=== PATIENT | male | born 1950 | race Caucasian/White ===

== ENCOUNTER 2016-06-25 15:50 | Inpatient (IN) | payer BC, MEDICARE ==
[~2016-06-25] VITALS: Ht 185.4 cm; Wt 84.4 kg
[2016-06-25 16:19] VITALS: BP 117/43
[2016-06-25 16:36] LABS: BASOPHILS % (AUTO) 1.1 % (0.0-2.0); EOSINOPHILS % (AUTO) 2.7 % (0.0-3.0); LYMPHOCYTES % (AUTO) 28.3 % (20.0-45.0); MEAN CORPUSCULAR HEMOGLOBIN 29.3 PG (27.0-31.0); MEAN CORPUSCULAR HGB CONC 33.5 G/DL (32.0-36.0); MEAN CORPUSCULAR VOLUME 88 FL (80-99); MEAN PLATELET VOLUME 6.9 FL (6.5-10.1); MONOCYTES % (AUTO) 8.2 % (1.0-10.0); NEUTROPHILS % (AUTO) 59.7 % (45.0-75.0); PLATELET COUNT 180 K/UL (150-450); RED BLOOD COUNT 4.46 M/UL (4.70-6.10); RED CELL DISTRIBUTION WIDTH 12.9 % (11.6-14.8); WHITE BLOOD COUNT 7.2 K/UL (4.8-10.8)
[2016-06-25 16:46] LABS: INR 1.1 (0.9-1.1)
[2016-06-25 16:49] LABS: TROPONIN I < 0.30 ng/mL (<=0.30)
[2016-06-25 16:51] LABS: ALBUMIN/GLOBULIN RATIO 1.4 (1.0-2.7); CALCIUM 9.4 mg/dL (8.6-10.2); CREATININE 1.9 mg/dL (0.7-1.2); GLOMERULAR FILTRATION RATE 35.5 mL/min (>60); MAGNESIUM 2.1 mg/dL (1.7-2.5); POTASSIUM 4.6 mEQ/L (3.4-4.9)
[2016-06-25 16:56] LABS: REFLEX LACTIC ACID YES OR NO YES
[2016-06-25 19:03] VITALS: BP 143/60
[2016-06-25] MEDS ORDERED: BENICAR20 MG ORAL (19:35)
[2016-06-25] MEDS ORDERED: METFORMIN HCL500 M1 ORAL (19:35)
[2016-06-25 20:11] VITALS: BP 144/66
[2016-06-25 20:32] LABS: APPEARANCE,URINE CLEAR; KETONES,URINE NEGATIVE (NEGATIVE); LEUKOCYTE ESTERASE ,URINE NEGATIVE (NEGATIVE); NITRITE,URINE NEGATIVE (NEGATIVE); PH,URINE 6 (4.5-8.0); PROTEIN,URINE NEGATIVE (NEGATIVE); UROBILINOGEN,URINE NORMAL MG/DL (0.0-1.0)
--- NOTE | 2016-06-25 21:13 | Emergency Room Report ---
History of Present Illness General Chief Complaint: Syncope Source: Patient, EMS Present Illness HPI Patient is a 66-year-old male who presented after having a syncopal episode at her pharmacy. The patient had been feeling lightheaded earlier in the day. The patient had a sudden loss of consciousness and hit his head. Patient denied any neck pain. He was brought in by ambulance. He had not been vomiting. He denied diarrhea or bloody stool. The patient had previously had episode where he became lightheaded and was diagnosed with pneumonia at [facility] but had never previously passed out. Patient had recent EKG for eye surgery and was noted to have a prior history of left bundle branch block. He had recently been taking eye drops for a post cataract surgery. His primary care physician is Dr. Osmar Washington. Allergies: Coded Allergies: No Known Allergies (Unverified , 06/25/16) Patient History Past Medical History: see triage record Reviewed Nursing Documentation: PMH: Agreed, PSxH: Agreed Nursing Documentation-PMH Past Medical History: No History, Except For Hx Cardiac Problems: Yes - L VENT BLOCK Hx Hypertension: Yes Hx Diabetes: Yes Review of Systems All Other Systems: negative except mentioned in HPI Physical Exam Vital Signs Date Time Temp Pulse Resp B/P Pulse Ox O2 Delivery O2 Flow Rate FiO2 06/25/16 15:39 97.5 82 12 111/86 98 Room Air Sp02 EP Interpretation: reviewed, normal General Appearance: normal inspection, well appearing, no apparent distress, alert, GCS 15, non-toxic Head: other - large frontal hematoma, ENT: normal ENT inspection, hearing grossly normal, normal voice, other - nasal abrasion Neck: normal inspection, full range of motion, supple, no bony tend Respiratory: normal inspection, lungs clear, normal breath sounds, no respiratory distress, no retraction, no wheezing Cardiovascular #1: regular rate, rhythm, no edema Gastrointestinal: normal inspection, normal bowel sounds, non tender, soft, no guarding, no hernia Genitourinary: no CVA tenderness Musculoskeletal: normal inspection, back normal, normal range of motion Neurologic: normal inspection, alert, oriented x3, 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 Potential causes for syncope included arrhythmia, dehydration, acute coronary syndrome, severe anemia, pulmonary embolus.Because of complexity of patient's case laboratory testing and imaging studies were ordered. Patient was noted to have EKG interpreted by me with first-degree AV block. with left bundle branch block Patient was noted to have a unremarkable chest x-ray. Laboratory testing showed evidence of the elevated creatinine and BUN. The patient was noted to have a previous creatinine of 1.9. The patient had been having some difficulty with urination. The patient's case was discussed with Dr. Osmar Sanchez who agreed to admit patient. The patient's primary physician Dr. Washington was contacted and requested Dr. Osmar Sanchez admit. Labs Test 06/25/16 16:00 06/25/16 17:30 06/25/16 19:55 White Blood Count 7.2 K/UL (4.8-10.8) Red Blood Count 4.46 M/UL (4.70-6.10) Hemoglobin 13.1 G/DL (14.2-18.0) Hematocrit 39.1 % (42.0-52.0) Mean Corpuscular Volume 88 FL (80-99) Mean Corpuscular Hemoglobin 29.3 PG (27.0-31.0) Mean Corpuscular Hemoglobin Concent 33.5 G/DL (32.0-36.0) Red Cell Distribution Width 12.9 % (11.6-14.8) Platelet Count 180 K/UL (150-450) Mean Platelet Volume 6.9 FL (6.5-10.1) Neutrophils (%) (Auto) 59.7 % (45.0-75.0) Lymphocytes (%) (Auto) 28.3 % (20.0-45.0) Monocytes (%) (Auto) 8.2 % (1.0-10.0) Eosinophils (%) (Auto) 2.7 % (0.0-3.0) Basophils (%) (Auto) 1.1 % (0.0-2.0) Prothrombin Time 11.0 SEC (9.30-11.50) Prothromb Time International Ratio 1.1 (0.9-1.1) Activated Partial Thromboplast Time 25 SEC (23-33) Sodium Level 140 mEQ/L (135-145) Potassium Level 4.6 mEQ/L (3.4-4.9) Chloride Level 99 mEQ/L (98-107) Carbon Dioxide Level 25 mEQ/L (20-30) Anion Gap 16 (5-15) Blood Urea Nitrogen 28 mg/dL (7-23) Creatinine 1.9 mg/dL (0.7-1.2) Estimat Glomerular Filtration Rate 35.5 mL/min (>60) Glucose Level 120 mg/dL (74-106) Calcium Level 9.4 mg/dL (8.6-10.2) Magnesium Level 2.1 mg/dL (1.7-2.5) Total Bilirubin 0.7 mg/dL (0.0-1.2) Aspartate Amino Transf (AST/SGOT) 18 U/L (5-40) Alanine Aminotransferase (ALT/SGPT) 16 U/L (3-41) Alkaline Phosphatase 51 U/L (40-129) Creatine Kinase MB 4.0 ng/mL (< 6.7) Troponin I < 0.30 ng/mL (<=0.30) Total Protein 8.0 g/dL (6.6-8.7) Albumin 4.7 g/dL (3.5-5.2) Globulin 3.3 g/dL Albumin/Globulin Ratio 1.4 (1.0-2.7) Lactic Acid Level 1.30 mmol/L (0.66-2.22) Urine Color Pale yellow Urine Appearance Clear Urine pH 6 (4.5-8.0) Urine Specific [place] 1.015 (1.005-1.035) Urine Protein Negative (NEGATIVE) Urine Glucose (UA) Negative (NEGATIVE) Urine Ketones Negative (NEGATIVE) Urine Occult Blood Negative (NEGATIVE) Urine Nitrite Negative (NEGATIVE) Urine Bilirubin Negative (NEGATIVE) Urine Urobilinogen Normal MG/DL (0.0-1.0) Urine Leukocyte Esterase Negative (NEGATIVE) Chest X-Ray Diagnostic Results EP Interpretation: Yes Findings: no consolidation, no effusion, no pneumothorax, no acute cardiopulmonary disease Number of Views: 1 Last Vital Signs Date Time Temp Pulse Resp B/P Pulse Ox O2 Delivery O2 Flow Rate FiO2 06/25/16 20:12 97.8 85 14 144/66 100 Room Air Status: unchanged Disposition: ADMITTED INPATIENT Condition: Serious Referrals: NON PHYSICIAN (PCP) Nacho Taylor Jun 25, 2016 21:13
[2016-06-25 22:19] VITALS: BP 144/66
[2016-06-26] VITALS: BP 147/76
[2016-06-26 04:00] VITALS: BP 154/77
[2016-06-26 08:00] VITALS: BP 127/69
[2016-06-26 08:09] LABS: BASOPHILS % (AUTO) 0.9 % (0.0-2.0); LYMPHOCYTES % (AUTO) 26.1 % (20.0-45.0); MEAN CORPUSCULAR HEMOGLOBIN 28.9 PG (27.0-31.0); MEAN CORPUSCULAR HGB CONC 33.3 G/DL (32.0-36.0); MEAN CORPUSCULAR VOLUME 87 FL (80-99); MEAN PLATELET VOLUME 7.2 FL (6.5-10.1); MONOCYTES % (AUTO) 8.8 % (1.0-10.0); NEUTROPHILS % (AUTO) 62.3 % (45.0-75.0); PLATELET COUNT 151 K/UL (150-450); RED BLOOD COUNT 4.07 M/UL (4.70-6.10); WHITE BLOOD COUNT 6.5 K/UL (4.8-10.8)
[2016-06-26 08:46] LABS: TROPONIN I < 0.30 ng/mL (<=0.30)
[2016-06-26 08:48] LABS: THYROID STIMULATING HORMONE 4.34 uIU/mL (0.300-4.500)
[2016-06-26 08:51] LABS: ALBUMIN/GLOBULIN RATIO 1.5 (1.0-2.7); CREATININE 1.5 mg/dL (0.7-1.2); GLOMERULAR FILTRATION RATE 46.7 mL/min (>60); POTASSIUM 5.3 mEQ/L (3.4-4.9); TOTAL PROTEIN 7.1 g/dL (6.6-8.7)
--- NOTE | 2016-06-26 10:14 | Diagnostic Imaging Report ---
Indication: Headache Technique: Contiguous 5 mm thick transaxial imaging of the head obtained in a Siemens Sensation [address] scanner. Soft tissue and bone windows generated. Total Dose length Product (DLP): [address] Dose Index Volume (CTDIvol): 70.38 mGy Comparison: none Findings: There is mild prominence of the ventricles, basal cisterns, and cerebral sulci consistent with atrophy. Mild, nonspecific, white matter hypoattenuation is noted throughout the brain consistent with chronic small vessel disease. There is no midline shift, edema, acute hemorrhage, mass effect, or abnormal extra-axial fluid collections. There is scalp hematoma in the left frontal region. Impression: No acute intracranial bleed, mass effect or edema. Mild atrophy of the brain. Nonspecific white matter hypoattenuation probably due to chronic small vessel disease. Dr. Maynard has communicated the preliminary results to the Emergency Department. There are no significant discrepancies. The CT scanner at [facility] is accredited by the [employer] and the scans are performed using protocols designed to limit radiation exposure to as low as reasonably achievable to attain images of sufficient resolution adequate for diagnostic evaluation.
[2016-06-26] MEDS: [UNRECOGNIZED DRUG - OTHER] OPHTHALM SCH (10:43)
[2016-06-26] MEDS: DUREZOL 0.05% OPHTHALM SCH ×3 (10:43→22:40)
--- NOTE | 2016-06-26 11:28 | Diagnostic Imaging Report ---
Indication: Chest Pain Comparison: None A single view chest radiograph was obtained. Findings: Cardiomediastinal appearance is within normal limits for age. Pulmonary vascularity is appropriate. The diaphragmatic contour is smooth and costophrenic angles are sharp. No pleural effusions are identified. The bones are unremarkable. Impression: No acute findings
[2016-06-26 12:00] VITALS: BP 121/63
--- NOTE | 2016-06-26 12:26 | Consultation ---
Consult Note Consult Note NEUROLOGY CONSULTATION: Full note dictated #[id number] 66 y/o, RH, CM with PH of HTN, dyslipidemia, hyperglycemia in the past and an episode of pneumonia 4 years ago. 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 Ate and drank fluids and then felt better. 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 Sat on a bench but rapidly passed out and fell face forward after he passed out. Rapidly regained consciousness. Feels normal now. ON EXAM: Bilateral raccoon eyes Forehead and facial abrasions. Smaller left palpebral fissure due to swelling. Globally diminished reflexes. IMPRESSION: Syncope due to possible dehydration. B12 deficiency - with mild neuropathy. REC: Agree with Rx. Fluid replacement. B12 - 1000 mcg SC q day x 3 days and then q month. Cardiac monitoring. Carotid duplex. Observe. Eddie Hobbs M.D., M.S.P.EDDIE PARR Jun 26, 2016 12:26
[2016-06-26] MEDS: Vitamin B12 1000mcg/ml Inj SUBQ SCH (13:14)
[2016-06-26 15:31] LABS: TROPONIN I < 0.30 ng/mL (<=0.30)
[2016-06-26 16:00] VITALS: BP 129/70
--- NOTE | 2016-06-26 16:23 | Geriatric Progress Note ---
Subjective Interval Events 66 y/o patient of Dr. Osmar Washington, brought by paramedics [place] [facility] [place] syncopal event at pharmacy. PMH: HTN dyslipidemia Borderline DM, tx with metformin. Hx of passed urinary tract stones. Incidental gall stones on MRI. Hx of hospitalization at [facility] ~4yrs ago for ? pneumonia, associated with weakness, syncope or near-syncope, hyperglycemia. Hx "neuropathy". Recent CE/IOL O.S. on postop eyedrops. Incidental findings on cataract preop of HTN, azotemia, LBBB, hyperuricemia. Started on Benicar 20. Noted some mild orthostatic sxs, which he planned to discuss with Dr. Washington this week. Also mild cough cold like sxs, clear phlegm for several days. ? Cough due to URI vs. ophthalmic drops. Yesterday stood at [employer] x 2hrs, but did eat and drink some. After meeting walked out and felt slightly lightheaded. Went to cafe for food. Then went to pharmacy for refills. While at pharmacy began to feel more lightheaded, moved to sitting area, experienced syncope with forehead hitting counter. Paramedics were called and patient brought to [facility] [place]. Patient estimates LOC only 5 secs. In ED, CT head, CXR unremarkable. EKG LBBB. Cr 2.1, lactate 2.30, nl wbc. Periorbital hematomas, no neurologic deformity. Given IVF. Repeat lactates normal, Cr 1.5, B12 273. Meds: Postop Durezol, Ilevro gtts. Metformin [held] Benicar [held] PE: slight gait instability. Periorbital hematomas with clear sclera, subjectively clear vision. Imp: Syncope - ? volume depletion, ? occult hypoglycemia, ? ADR antihypertensive, ?dysautonomia, ?occult neurologic event, ?occult dysrhythmia, ?occult adrenal insufficiency. Lactic acidosis - ?effect of metformin in azotemic patient, doubt sepsis, doubt major organ system hypoperfusion. Possible b12 deficiency, ? metformin vs. routine decreased absorption. HTN may not require med tx. DM may not require med tx, may require other agent. Neurology evaluation. Cardiology evaluation. Check orthostatics. Mobilize. Supplement B12. Complete w/u with echo, carotids, labs. Discussed with patient. Old labs requested from Dr. Washington's office. Dictated #[id number] Geriatric Geriatric Last 24 Hour Vital Signs Date Time Temp Pulse Resp B/P Pulse Ox O2 Delivery O2 Flow Rate FiO2 06/26/16 12:00 69 74 58 06/26/16 12:00 97.7 69 18 121/63 97 Room Air 06/26/16 12:00 79 06/26/16 09:00 70 72 99 06/26/16 08:00 97.7 70 17 127/69 96 Room Air 06/26/16 08:00 74 06/26/16 04:00 97.0 82 16 154/77 98 Room Air 06/26/16 04:00 72 06/26/16 01:00 77 76 101 06/26/16 00:00 71 06/26/16 00:00 98.2 77 16 147/76 98 Room Air 06/25/16 22:19 97.8 85 14 144/66 100 Room Air 06/25/16 20:12 97.8 85 14 144/66 100 Room Air 06/25/16 20:11 97.8 85 14 144/66 100 Room Air 06/25/16 19:03 97.7 88 13 143/60 100 Room Air 06/25/16 16:19 97.6 87 20 117/43 100 Room Air Intake and Output 06/25/16 06/26/16 19:00 07:00 Intake Total 1000 ml 740 ml Balance 1000 ml 740 ml Intake Oral 240 ml IV Total 1000 ml 500 ml # Voids 3 Laboratory Tests Test 06/25/16 17:30 06/25/16 19:55 06/26/16 05:50 06/26/16 14:30 Lactic Acid Level 1.30 mmol/L (0.66-2.22) 1.80 mmol/L (0.66-2.22) Urine Color Pale yellow Urine Appearance Clear Urine pH 6 (4.5-8.0) Urine Specific [place] 1.015 (1.005-1.035) Urine Protein Negative (NEGATIVE) Urine Glucose (UA) Negative (NEGATIVE) Urine Ketones Negative (NEGATIVE) Urine Occult Blood Negative (NEGATIVE) Urine Nitrite Negative (NEGATIVE) Urine Bilirubin Negative (NEGATIVE) Urine Urobilinogen Normal MG/DL (0.0-1.0) Urine Leukocyte Esterase Negative (NEGATIVE) White Blood Count 6.5 K/UL (4.8-10.8) Red Blood Count 4.07 M/UL (4.70-6.10) L Hemoglobin 11.8 G/DL (14.2-18.0) L Hematocrit 35.4 % (42.0-52.0) L Mean Corpuscular Volume 87 FL (80-99) Mean Corpuscular Hemoglobin 28.9 PG (27.0-31.0) Mean Corpuscular Hemoglobin Concent 33.3 G/DL (32.0-36.0) Red Cell Distribution Width 12.0 % (11.6-14.8) Platelet Count 151 K/UL (150-450) Mean Platelet Volume 7.2 FL (6.5-10.1) Neutrophils (%) (Auto) 62.3 % (45.0-75.0) Lymphocytes (%) (Auto) 26.1 % (20.0-45.0) Monocytes (%) (Auto) 8.8 % (1.0-10.0) Eosinophils (%) (Auto) 2.0 % (0.0-3.0) Basophils (%) (Auto) 0.9 % (0.0-2.0) Sodium Level 140 mEQ/L (135-145) Potassium Level 5.3 mEQ/L (3.4-4.9) H Chloride Level 102 mEQ/L (98-107) Carbon Dioxide Level 24 mEQ/L (20-30) Anion Gap 14 (5-15) Blood Urea Nitrogen 22 mg/dL (7-23) Creatinine 1.5 mg/dL (0.7-1.2) H Estimat Glomerular Filtration Rate 46.7 mL/min (>60) Glucose Level 83 mg/dL (74-106) Hemoglobin A1c 5.1 % (< 6.0) Calcium Level 9.0 mg/dL (8.6-10.2) Magnesium Level 2.0 mg/dL (1.7-2.5) Total Bilirubin 0.9 mg/dL (0.0-1.2) Aspartate Amino Transf (AST/SGOT) 16 U/L (5-40) Alanine Aminotransferase (ALT/SGPT) 13 U/L (3-41) Alkaline Phosphatase 51 U/L (40-129) Troponin I < 0.30 ng/mL (<=0.30) < 0.30 ng/mL (<=0.30) Total Protein 7.1 g/dL (6.6-8.7) Albumin 4.3 g/dL (3.5-5.2) Globulin 2.8 g/dL Albumin/Globulin Ratio 1.5 (1.0-2.7) Vitamin B12 Level 273 pg/mL (211-946) Vitamin D 25-Hydroxy Pending 25-Hydroxy Vitamin D2 Pending 25-Hydroxy Vitamin D3 Pending Folate Pending Thyroid Stimulating Hormone (TSH) 4.340 uIU/mL (0.300-4.500) Current Medications Medications (Trade) Dose Ordered Sig/Gorge Route PRN Reason Start Time Stop Time Status Last Admin Dose Admin Cyanocobalamin (Vitamin B12) 1,000 mcg DAILY SUBQ 06/26/16 13:30 06/29/16 13:29 06/26/16 13:14 Patient Own Medication (Patient's Own Med) 1 ea DAILY OPHTHALM 06/26/16 11:00 07/17/16 10:59 06/26/16 10:43 Patient Own Medication (Patient's Own Med) 1 ea TID OPHTHALM 06/26/16 11:00 07/26/16 10:59 06/26/16 15:00 Height (Feet): 6 Height (Inches): 1.00 Weight (Pounds): 186 OSMAR STAUFFER Jun 26, 2016 16:22
[2016-06-26] MEDS ORDERED: metFORMIN 500mg tab ORAL SCH (18:00)
--- NOTE | 2016-06-26 18:17 | Cardiology Progress Note ---
Assessment/Plan Assessment/Plan [id number] syncope likely vasodepressor hypotension related to volume and meds periorbital ecchymosis due to trauma lbbb ? new vit b12 insuf bp improved may need lwoer dose fo antihypertensive in future if bp elevated tele neg need ischemia evaluation in future if LBBB is new Objective Last 24 Hour Vital Signs Date Time Temp Pulse Resp B/P Pulse Ox O2 Delivery O2 Flow Rate FiO2 06/26/16 17:00 70 74 64 06/26/16 16:00 98.1 69 16 129/70 97 Room Air 06/26/16 16:00 66 06/26/16 12:00 69 74 58 06/26/16 12:00 97.7 69 18 121/63 97 Room Air 06/26/16 12:00 79 06/26/16 09:00 70 72 99 06/26/16 08:00 97.7 70 17 127/69 96 Room Air 06/26/16 08:00 74 06/26/16 04:00 97.0 82 16 154/77 98 Room Air 06/26/16 04:00 72 06/26/16 01:00 77 76 101 06/26/16 00:00 71 06/26/16 00:00 98.2 77 16 147/76 98 Room Air 06/25/16 22:19 97.8 85 14 144/66 100 Room Air 06/25/16 20:12 97.8 85 14 144/66 100 Room Air 06/25/16 20:11 97.8 85 14 144/66 100 Room Air 06/25/16 19:03 97.7 88 13 143/60 100 Room Air Intake and Output 06/25/16 06/26/16 19:00 07:00 Intake Total 1000 ml 740 ml Balance 1000 ml 740 ml Intake Oral 240 ml IV Total 1000 ml 500 ml # Voids 3 Laboratory Tests Test 06/25/16 19:55 06/26/16 05:50 06/26/16 14:30 Urine Color Pale yellow Urine Appearance Clear Urine pH 6 (4.5-8.0) Urine Specific [place] 1.015 (1.005-1.035) Urine Protein Negative (NEGATIVE) Urine Glucose (UA) Negative (NEGATIVE) Urine Ketones Negative (NEGATIVE) Urine Occult Blood Negative (NEGATIVE) Urine Nitrite Negative (NEGATIVE) Urine Bilirubin Negative (NEGATIVE) Urine Urobilinogen Normal MG/DL (0.0-1.0) Urine Leukocyte Esterase Negative (NEGATIVE) White Blood Count 6.5 K/UL (4.8-10.8) Red Blood Count 4.07 M/UL (4.70-6.10) L Hemoglobin 11.8 G/DL (14.2-18.0) L Hematocrit 35.4 % (42.0-52.0) L Mean Corpuscular Volume 87 FL (80-99) Mean Corpuscular Hemoglobin 28.9 PG (27.0-31.0) Mean Corpuscular Hemoglobin Concent 33.3 G/DL (32.0-36.0) Red Cell Distribution Width 12.0 % (11.6-14.8) Platelet Count 151 K/UL (150-450) Mean Platelet Volume 7.2 FL (6.5-10.1) Neutrophils (%) (Auto) 62.3 % (45.0-75.0) Lymphocytes (%) (Auto) 26.1 % (20.0-45.0) Monocytes (%) (Auto) 8.8 % (1.0-10.0) Eosinophils (%) (Auto) 2.0 % (0.0-3.0) Basophils (%) (Auto) 0.9 % (0.0-2.0) Sodium Level 140 mEQ/L (135-145) Potassium Level 5.3 mEQ/L (3.4-4.9) H Chloride Level 102 mEQ/L (98-107) Carbon Dioxide Level 24 mEQ/L (20-30) Anion Gap 14 (5-15) Blood Urea Nitrogen 22 mg/dL (7-23) Creatinine 1.5 mg/dL (0.7-1.2) H Estimat Glomerular Filtration Rate 46.7 mL/min (>60) Glucose Level 83 mg/dL (74-106) Hemoglobin A1c 5.1 % (< 6.0) Lactic Acid Level 1.80 mmol/L (0.66-2.22) Calcium Level 9.0 mg/dL (8.6-10.2) Magnesium Level 2.0 mg/dL (1.7-2.5) Total Bilirubin 0.9 mg/dL (0.0-1.2) Aspartate Amino Transf (AST/SGOT) 16 U/L (5-40) Alanine Aminotransferase (ALT/SGPT) 13 U/L (3-41) Alkaline Phosphatase 51 U/L (40-129) Troponin I < 0.30 ng/mL (<=0.30) < 0.30 ng/mL (<=0.30) Total Protein 7.1 g/dL (6.6-8.7) Albumin 4.3 g/dL (3.5-5.2) Globulin 2.8 g/dL Albumin/Globulin Ratio 1.5 (1.0-2.7) Vitamin B12 Level 273 pg/mL (211-946) Vitamin D 25-Hydroxy Pending 25-Hydroxy Vitamin D2 Pending 25-Hydroxy Vitamin D3 Pending Folate Pending Thyroid Stimulating Hormone (TSH) 4.340 uIU/mL (0.300-4.500) Cortisol 8.5 ug/dL HOLA KIM Jun 26, 2016 18:17
[2016-06-26 20:00] VITALS: BP 117/64
[2016-06-26 22:07] LABS: TROPONIN I < 0.30 ng/mL (<=0.30)
--- NOTE | 2016-06-26 22:28 | Consultation ---
DATE OF CONSULTATION: 06/26/2016 NEUROLOGY CONSULTATION REQUESTING PHYSICIAN: Osmar Sanchez M.D. HISTORY: Mr. Shyam Chand is a 66-year-old, right-handed, gentleman, who does have a past history of hypertension, dyslipidemia, an episode where he was hyperglycemic in the past and an episode of pneumonia approximately four years ago. He was functioning relatively well and was at a political meeting yesterday and standing for approximately two hours. At that time, he felt a little lightheaded. He went to the cafe, got something to eat and drank some fluids and felt better. He was then able to drive himself to a pharmacy to pickle sorter some medicine. While he at the pharmacy, he started to feel more lightheaded. He sat on a chair and then sat on the bench, but then rapidly passed out and fell face forward. He was out for a very brief period of time and regained consciousness rapidly. When he regained consciousness, the mind was clear and he did not notice any weakness on one side or the other, numbness on one side or the other, problems with speech, problems with language, problems in vision or any other neurological symptoms. He was brought into the [facility] emergency room and was evaluated. At this point in time, he feels much better and feels that he is back to his normal self. This consultation was requested by Dr. Sanchez to evaluate the patient from a neurological point of view for his episode of loss of consciousness. PAST MEDICAL HISTORY: Significant for high blood pressure, dyslipidemia, hyperglycemia in the past, an episode of pneumonia approximately four years ago, recent cataract surgery and recent flu-like syndrome a few weeks ago. FAMILY HISTORY: Nothing significant. PERSONAL HISTORY: Home: He lives at home with his son. Work: He works for the [employer]. Habits: He denies the use of alcohol, tobacco or illicit drugs. MEDICATIONS: Present medications include metformin. Medications at home included ophthalmic eye drop for his recent cataract surgery and Bystolic. PHYSICAL EXAMINATION: GENERAL: He is a well-developed and well-nourished, pleasant gentleman, lying in bed, in no acute distress. VITAL SIGNS: Pulse 70 per minute, blood pressure 137/69 mm Hg, respirations 18 per minute, and temperature 97.7 degrees Fahrenheit. HEAD: Normocephalic with bilateral raccoon's eyes with the left eye swollen more than the right eye and in addition forehead and facial abrasions. EENT: Examination benign. NECK: No neck rigidity was observed. NEUROLOGICAL EXAMINATION: MENTAL STATUS EXAMINATION: He was alert and awake. He was oriented to person, place, and time. He was able to recall 3/3 words immediately after 1 minute and 3 minutes on the second trial. He was able to remember presidents Obama through Bennie. His mathematical skills were good. His visuospatial function was preserved. SPEECH: He had no dysarthria. LANGUAGE: He had no aphasia. CRANIAL NERVE EXAMINATION: II: The visual rivers were intact to confrontation testing. III, IV & : The external ocular movements were full and the pupils 3 mm in diameter, equal, round, regular and reactive sluggishly to light. He did have significant ptosis bilaterally with palpebral fissure being smaller on the left side compared to the right side. V: He had normal facial sensations and the temporales, masseters, and pterygoids function normally. VII: He had normal facial expressions and no facial asymmetry. VIII: He was able to hear well bilaterally and had no nystagmus. IX: The palate moved symmetrically on phonation. X: He had no hoarseness of voice. XI: The sternocleidomastoids and trapezii functioned normally. XII: The tongue was in the midline without any fasciculations or atrophy. MOTOR SYSTEM: The tone was normal in all four extremities. Examination of muscle mass revealed no focal wasting. Examination of power revealed grade 5/5 power in all muscle groups tested. SENSORY EXAMINATION: He had intact sensations to pinprick, light touch, and graphesthesia. COORDINATION: He performed well on [id number]-[id number] and junu-ce-[id number] testing. On Romberg test, he swayed, but did not fall to one side or the other. REFLEXES: Trace+ and bilaterally symmetrical at the biceps, triceps, brachioradialis, and knees. 0 at both ankles. The plantar responses were flexor bilaterally. STANCE: He had a minimally wide-based, but stable stance. GAIT: He walked with a minimally wide-based, but stable gait. DIAGNOSTIC IMPRESSION: 1. Mr. Shyam Chand is a 66-year-old, right-handed, gentleman, who does have a past history of hypertension and dyslipidemia, but he was hyperglycemic numerous years ago, and had an episode of pneumonia approximately four years ago. On 06/25/16 was at a meeting and standing for approximately two hours following, which he felt lightheaded. He had some fluids and ate and felt better. Later on he went to the pharmacy to pickle sorter some medicine where he again felt lightheaded and while he was trying to sit on the bench he rapidly passed out and fell face forward. He then regained consciousness rapidly and at this point in time, he feels quite well. 2. On neurological examination, at this time, he has bilateral raccoon's eyes and in addition forehead and facial abrasions. His deep tendon reflexes are globally diminished, but the rest of his neurological examination is essentially benign. 3. A CT scan of the brain without contrast revealed no intracranial pathology. 4. Laboratory data revealed that he is mildly anemic with a hemoglobin of 11.8. His chemistry panel on admission revealed a BUN of 28 and creatinine of 1.9. The Lactic acid was elevated to 2.30. Since then he has had further laboratory tests, which have revealed a normal hemoglobin A1c of 5.1, but a low B12 level of 273. The TSH is normal. 5. The patient's history and neurological examination are most compatible with a syncopal episode. The episode of syncope was most probably related to dehydration, however, other etiologies should be excluded. RECOMMENDATIONS: 1. Agree with management thus far. 2. Agree with working the patient up cardiologically with cardiac monitoring and an echocardiogram. 3. A cerebrovascular noninvasive profile should be performed to evaluate the patient for hemodynamically significant carotid disease. 4. The patient is vitamin B12 deficient and that should be treated with parenteral B12. 5. The patient's fluid electrolyte status should be optimized. 6. The patient was told to be as active as possible. 7. Depending on how the patient fares over the next 24 hours, further recommendations will be given. Thank you for entrusting me with the care of Mr. Chand. I shall follow him with you. Chivo Hobbs M.D., M.S.P.H. DR: NIECY JOB#: [id number] [email or web address]
--- NOTE | 2016-06-27 00:17 | History and Physical Report ---
DATE OF ADMISSION: 06/25/2016 The patient is admitted on 06/25/2016, the patient is seen on 06/26/2016. CHIEF COMPLAINT: The patient is a 66-year-old gentleman who was brought to the hospital because of a syncopal episode. HISTORY OF PRESENT ILLNESS: The patient is a gentleman with relatively little in the way of significant medical issues. He reports being hospitalized once at [facility] approximately four years ago with some type of infectious syndrome diagnosed as pneumonia, but not definitively. During that admission, he was noted to have significant hyperglycemia and at that time started on metformin for diabetic control. His only prior medical issues apparently had been borderline hypertension, borderline hyperlipidemia, history of passed urinary stones, and incidental finding of gallstones. The patient subsequently apparently did well with no episodes of hypoglycemia and with fasting blood sugars generally in the 80s. Polyps were removed on routine colonoscopy last year. Approximately three weeks ago, the patient underwent a left eye cataract extraction and intraocular lens implant. Prior to that, the patient had a preoperative evaluation. During that evaluation, the patient was noted to have hypertension in the 140/90 range and he was advised to begin treatment with Benicar 20 mg a day. He was also noted again to have hyperlipidemia with a plan to subsequently start statin therapy and incidental left bundle-branch block was found on electrocardiogram. Laboratory data revealed a creatinine of 2.1 as well as a uric acid of 8.2. The patient subsequently underwent a cataract surgery without significant complications and has been taking postoperative eye drops involving a steroid and an NSAID in the left eye. Over the last few days, the patient had noted a cough and some congestion suggesting a possible upper respiratory tract infection. He produced some clear phlegm, but was not severely ill and had no specific therapy. Yesterday, the patient attended a [employer] rally, which was quite crowded and apparently he stood for two hours. He did eat and drink something during that meeting and he subsequently left the meeting and apparently had some symptoms of lightheadedness. He proceeded to cafe to have a small amount of oral intake and then went to a pharmacy to refill some of his medications. While at the pharmacy, he began to feel more lightheaded and moved to a sitting area where he apparently lost consciousness and fell forward hitting his forehead against the counter and then ending up on the ground. The paramedics were called. The patient recalls regaining consciousness as the staff gathered around him and he estimates that he only lost consciousness for several seconds. There were no significant prodromal symptoms other than the lightheadedness. There was no vertigo, no palpitations, no chest pain, no chest pressure, and no shortness of breath. The patient also denies any increasing shortness of breath, change in exercise tolerance, or palpitations over recent months. The patient was brought to the emergency department at [facility]. In the emergency department, a CT scan of the head was done, which revealed no evidence of intracranial bleed or acute process and no evidence of significant focal disease. The patient's chest x-ray was unremarkable with no evidence of pneumonitis or fluid redistribution, and an electrocardiogram apparently showed a left bundle-branch block, but otherwise was without evidence of acute process. Laboratory data revealed a normal white count of 7.2, hematocrit of 39.1%, MCV of 88, and platelet count 180,000 with normal differential. The INR is 1.1 with a PTT of 25. Urinalysis was unremarkable on dipstick. Chemistries revealed a sodium of 140, potassium 4.6, chloride 99, bicarbonate 25, BUN of 28, creatinine 1.9, glucose of 120, calcium 9.4, and magnesium 2.1. Total bilirubin 0.7, AST 18, ALT 16, and alkaline phosphatase 51. MB 4.0. Total protein 8.0 and albumin 4.7. Troponin is less than 0.30. Lactate of 2.30. Given the abnormal lactate and the syncopal episode, the patient was admitted for further evaluation and treatment. PAST MEDICAL HISTORY: Essentially as noted above. 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 He denies any significant industrial exposures. He is currently employed and is living alone. There is no significant alcohol, recreational drug, or tobacco history. The patient's diet is not particularly restricted. MEDICATIONS: Prior to the admission include metformin 500 mg twice a day, Benicar 20 mg daily, as well as the postoperative ophthalmic drops, Durezol and Ilevro. ALLERGIES: No known allergies. REVIEW OF SYSTEMS: The patient has periorbital hematomas, but denies any significant headache or head pain. He denies any difficulty with his vision or pain with extraocular movements. He has mild congestion in the upper respiratory tract as described above, but otherwise no difficulty with respiratory symptoms. No difficulty with swallowing. No difficulty with chest pain, chest pressure, or palpitations. He reports no specific abdominal or gastrointestinal symptoms. Reports some hesitancy of urinary stream, but otherwise no specific urinary tract symptoms. He denies any problems with bowel movements. Denies any specific joint or extremity problems. 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 He reports that his sleep has not been optimal and there is some sleepiness in the afternoons, but he has not had any episodes of falling asleep during the daytime. PHYSICAL EXAMINATION: VITAL SIGNS: The patient's blood pressure is 121/63, heart rate 58 and regular, respiratory rate is 18, oxygen saturation 97% on room air, and temperature 97.7. GENERAL: The patient is a well-developed gentleman, not in any acute physical distress, able to communicate fluently and lucidly. HEAD AND NECK: Reveals the periorbital hematomas. There is no evidence of more significant trauma. The oropharynx is clear with what appears to be adequate hydration at the present time. The sclerae show no evidence of hemorrhage or icterus. The neck has normal range of motion. There is no evidence of masses. No bruits are appreciated. CHEST: Initially has an expiratory wheeze, but this clears with after coughing and deep breathing with otherwise normal breath sounds. CARDIAC: Reveals a regular rhythm without gallops, murmurs, or rubs appreciated. ABDOMEN: Reveals normal bowel sounds. Soft and nontender without masses or organomegaly. EXTREMITIES: Reveal no significant evidence of edema and no acute synovitis or joint changes and no calf tenderness. The patient's Romberg reveals moderate sway. There is no drift. Single leg balance appears to be symmetric with poor. The patient's gait is otherwise fairly unremarkable. Strength appears to be symmetric. LABORATORY AND DIAGNOSTIC DATA: Additional laboratory data: Today's laboratory includes a white count of 6.5, hematocrit 35.4%, MCV 87, and platelet count of 151,000 with normal differential. Repeat chemistry shows sodium of 140, potassium 5.3, chloride of 102, bicarbonate of 24, BUN 22, creatinine 1.5, and glucose 83. Repeat lactate to 1.3 and 1.8. Calcium 9.0. Magnesium 2.0. Total bilirubin is 0.9, AST 16, ALT 13, and alkaline phosphatase 51. Total protein 7.1 and albumin 4.3. B12 level 273. TSH 4.34. Glycohemoglobin 5.1. Troponins remained less than 0.30 serially. Vitamin D level, folate, and random cortisol levels are pending. IMPRESSION: The patient presents with syncope of somewhat unclear etiology. He certainly experienced stressors in the day leading up to this syncopal event including potentially an ongoing upper respiratory tract infection, the effects of his ophthalmic eye drops, his standing at political rally, and may, in addition, has been experiencing adverse effects from his antihypertensives and potentially even his metformin dosing. However, clearly other etiologies including an acute neurologic event or acute cardiac event need to be ruled out at this time. In addition, the patient has been found to have a relatively low B12 level and this could be contributing to his chronic neuropathic symptoms, his apparent mild gait instability and potentially even exacerbating an element of dysautonomia leading to the symptoms requiring this hospitalization. The patient will be seen in neurologic consultation by Dr. Chivo Hobbs and Cardiology consultation by Dr. Levon Perla. B12 supplementation has already been initiated by Dr. Hobbs and will be continued. Additional laboratory work including random cortisol level will be checked to rule out other metabolic causes of the apparent presentation. Of concern at the time of the presentation is the patient's initial elevated lactic acid level. The patient does not have any evidence contributing to the picture of an underlying sepsis at this point and in addition the description of the events did not suggest the likelihood of a significant element of hypoperfusion of any major organ system which would lead to a lactic acidosis. Therefore, the most likely underlying factor at this point would be lactic acidosis associated with the use of metformin in a patient is underlying azotemia. In addition, the patient's glucose is appeared to be relatively well controlled or perhaps even a little bit too well controlled on metformin. This has been held because of the patient's azotemia and Accu-Cheks so far have not suggested any significant elevation of the glucose, so it is possible the patient may not require medication treatment for his diabetic syndrome in the future or possibly would require an alternate agent. Likewise, the patient's blood pressure off of his Benicar has not showed significant elevation and the patient may in fact not require specific anti hypertensive treatment in the future. The patient was also noted to have somewhat elevated uric acid, but this in the setting of the azotemia. The patient's creatinine has already dropped from 1.9 to 1.5 during this admission and potentially if the azotemia is attributable to medication factors or hydration factors, the patient may have relatively normal renal function and a redetermination of uric acid may show no evidence hyperuricemia. Otherwise, treatment of the hyperuricemia may be indicated to prevent interstitial renal disease. Finally, the patient's intra-ocular lens implant does not appear to have been affected by the fall. He will certainly require follow up from his diffuser operator, but it is likely he can simply continue his postoperative eye drops until that time. The situation was discussed in detail with the patient, who understands and concurs with the present approach. A request was made to Dr. Washington's office for baseline laboratory values and any other records that might be helpful in understanding the patient's baseline status to guide further workup. Once the patient has completed his carotid study, cardiac echo, and his repeat laboratory studies if there is no evidence of further instability likely the patient can return home. He has been mobilized with physical therapy and there has been no evidence of significant gait instability requiring skilled therapy at this point. Osmar Sanchez M.D. DR: CHRISSIE JOB#: [id number] CC: DAVY
[2016-06-27 00:21] VITALS: BP 126/72
[2016-06-27 04:07] VITALS: BP 121/60
--- NOTE | 2016-06-27 04:17 | History and Physical Report ---
DATE OF ADMISSION: 06/25/2016 ADDENDUM: IMPRESSION: The patient presents with syncope of somewhat unclear etiology. He certainly experienced stressors in the day leading up to this syncopal event including potentially and ongoing upper respiratory tract infection. Defects of his ophthalmic eye drops. He is standing at political rally and may in addition has been experiencing adverse effects from his hypertensive and potentially even his metformin dosing. However, clearly other etiologies including an acute neurologic event or acute cardiac event needs to be ruled out at this time. In addition, the patient has been found to have a relatively low B12 level and this could be contributing to his chronic neuropathic symptoms, his apparent mild gait instability and potentially even exacerbating an element of dysautonomia leading to the symptoms requiring this hospitalization. The patient will be seen in neurologic consultation by Dr. Chivo Hobbs and Cardiology consultation by Dr. Levon Perla. B12 supplementation has already been initiated by Dr. Hobbs and will be continued. Additional laboratory work including random cortisol level will be checked to rule out other metabolic causes of the apparent presentation. at the time of the presentation is the patient's initial elevated lactic acid level. The patient does not have any evidence contributing to the picture of an underlying sepsis at this point and in addition the description of the events did not suggest the likelihood of a significant element of hypoperfusion of any major organ system which would lead to a lactic acidosis. Therefore, the most likely underlying factor at this point would be a creation of the lactic acidosis associated with the use of metformin in a patient is underlying azotemia. In addition, the patient's glucose is appeared to be relatively well controlled or perhaps even a little bit too well controlled on metformin. This has been held because of the patient's azotemia and Accu-Cheks so far have not suggested any significant elevation of the glucose so it is possible the patient may not require medication treatment for his diabetic syndrome in the future or possibly would require an alternate agent. Likewise, the patient's blood pressure off of his Benicar is not showed significant elevation and the patient may in fact not require specific anti hypertensive treatment in the future. The patient was also noted to have somewhat elevated uric acid, but this in the setting of the azotemia. The patient's creatinine has already dropped from 1.9 to 1.5 during this admission and potentially if the azotemia is attributable to medication factors or hydration factors, the patient may have relatively normal renal function and a redetermination of uric acid may show no evidence hyperuricemia. Finally, the patient's intra-ocular lens implants does not appear to have been affected by the fall. He will certainly require follow up from his chief nursing executive that likely can simply continue his postoperative eye drops until that time. Situations discussed in detail with the patient, who understands and concurs with the present approach. A request was made to office for baseline laboratory values and any other records that might be helpful in understanding the patient's baseline status to guide further workup. Once the patient has completed his carotid study, cardiac echo, and his repeat laboratory studies if there is no evidence of further instability likely the patient can return home. He has been mobilized with physical therapy and there has been no evidence of significant gait instability requiring skilled therapy at this point. Osmar Sanchez M.D. DR: Rio JOB#: [id number] CC: DAVY
--- NOTE | 2016-06-27 04:28 | Consultation ---
DATE OF CONSULTATION: 06/26/2016 CARDIOLOGY CONSULTATION REFERRING PHYSICIAN: Osmar Sanchez M.D. REASON FOR REFERRAL: Syncope. HISTORY OF PRESENT ILLNESS: This is a middle-aged gentleman, who recently was seen by Dr. Osmar Sanchez, his usual physician at a preoperative evaluation for his cataract extraction approximately one month ago. His blood pressure was noted to be elevated and was noted to have left bundle-branch conduction defect on the EKG. The patient was started on some blood pressure medications that he started and he did notice that his blood pressure would drop from 140/90 that was at baseline to approximately 98 or so and he would be a little bit off balance, but nothing more than that. Nevertheless, he continued to take the medication. Yesterday while he was at a restaurant, he developed some dizziness, he sat down, took some water and drank and eventually symptoms resolved. He went to the pharmacist who he felt the dizziness again he got himself back into the chair and next thing he knows that he has fallen on the floor with his head touching the floor. Paramedics were summoned. [employer] run sheet was reviewed showed blood pressure initially 102/62 subsequently 91/56. Heart rate documented in the 60s and 70s range. His blood pressure did drop to as low as 83/33. He was brought to the emergency room at [facility] where he was subsequently evaluated and was admitted to the hospital. The syncope apparently lasted only 5 minutes. He has had developed a hematoma of the forehead. Absolutely denies any chest pain or shortness of breath. There is no PND or orthopnea. He uses one pillow, he says usually he does not have dizziness or lightheadedness on standing. He has not noticed any palpitations before the syncopal episode. PAST MEDICAL HISTORY: Positive for bout of sepsis when he was diagnosed with type 2 diabetes mellitus three or four years ago at which time was diagnosed with pneumonia and had a brief episode of syncope during that time while he was driving to the hospital with profound hyperglycemia at that time. He subsequently lost a significant amount of weight and his blood sugars have been well controlled. He does not have heart attack. No cancer, stroke, hepatitis, tuberculosis, asthma, or emphysema. No ulcers. No kidney problems, liver problems, thyroid problems, anemia, or arthritis. He has had cataract that was extracted and he has had retinal detachment in one eye. ALLERGIES: He is not allergic to any medications. SOCIAL HISTORY: Does not smoke. Does not drink. Does not use any drugs. REVIEW OF SYSTEMS: Gastrointestinal: Negative. Genitourinary: Negative. Pulmonary: Negative except for the fact that he had recent sore throat that has completely resolved. Musculoskeletal: Negative except for the fact that he has had pains in his face, left side of his upper face. Neurological: Unremarkable. PHYSICAL EXAMINATION: GENERAL: Shows to be a middle-aged gentleman, in no apparent respiratory distress. He has significant amount of ecchymosis around his orbits on both sides, left greater than right but nevertheless significantly around the right as well. NECK: Supple. No jugular venous distention. No abdominojugular reflux noted. LUNGS: Clear to auscultation and percussion. CARDIAC: S1 is normal. S2 is normal. Regular rate and rhythm. No heaves, thrills, gallops, or rubs are noted. ABDOMEN: Soft and nontender. Positive bowel sounds. EXTREMITIES: There is no clubbing, cyanosis, or edema. NEUROLOGIC: He is awake, alert, responsive, and moves all four extremities. LABORATORY AND DIAGNOSTIC DATA: His blood pressure is anywhere between lowest of 111/86 up to 154/77. His blood tests, white count 6.5, hemoglobin 11.8, and platelet count of 151,000. His sodium 140, potassium of 5.3, chloride 102, bicarbonate 24, BUN of 22, creatinine 1.5, and glucose of 83. His creatinine was 1.9 at the time of his admission. Yesterday, his lactic acid was 2.3, came down to 1.8. His troponin at least on three separate occasions were all normal. His TSH was 4.3. His vitamin B12 was 273. His albumin was 4.3. Coags, INR 1.1 and PTT 25. His urinalysis is fairly unremarkable. He had a CT scan of his head that showed no intracranial bleeding, mass effect, or edema. Mild atrophy of the brain. Nonspecific white matter hypoattenuation probably secondary to chronic small vessel disease. His chest x-ray performed shows no acute findings. His electrocardiogram shows left bundle-branch conduction defect and sinus rhythm. His telemetry data shows sinus rhythm. No significant bradycardia was noted. ASSESSMENT: 1. Syncope, vasodepressor in origin. 2. History of elevated blood pressure readings recently. 3. Periorbital edema secondary to trauma. 4. Left bundle-branch conduction defect possibly new. PLAN: Dr. Sanchez, this patient was seen in cardiac consultation. The patient has no signs or symptoms of an acute coronary syndrome or chronic coronary syndrome. His syncope likely secondary to the hypotension as documented by low blood pressure reading by the paramedics possibly either related to a combination of antihypertensive medications. His blood pressure subsequently has improved from 90s that was documented when he was initially found by the paramedics to 154. I suspect if he needs to be treated with medication may be a low dose of Benicar may be an order in the near future. For the time being, I would recommend discontinuation of Benicar until his blood pressure readings were back. Fluid hydration if becomes necessary. An echocardiogram has been performed with seems to indicate normal left ventricular systolic function that needs to be followed up on. In light of the fact that he has left bundle-branch block conduction defect this is a new finding, so he may at some point undergo an ischemia evaluation to see if any problems with myocardial ischemia as a cause of new left bundle. He was noted to have vitamin B12 deficiency, insufficiency and he should be receiving B12 injections. Dr. Sanchez, thank you for allowing me to participate in the care of this patient. Levon Perla M.D. DR: JOEL JOB#: [id number] CC:
[2016-06-27 08:00] VITALS: BP 135/66
[2016-06-27] MEDS: DUREZOL 0.05% OPHTHALM SCH ×2 (08:47→12:57)
[2016-06-27] MEDS: [UNRECOGNIZED DRUG - OTHER] OPHTHALM SCH (08:47)
[2016-06-27] MEDS: Vitamin B12 1000mcg/ml Inj SUBQ SCH (09:24)
[2016-06-27 09:27] LABS: BASOPHILS % (AUTO) 0.8 % (0.0-2.0); EOSINOPHILS % (AUTO) 2.4 % (0.0-3.0); LYMPHOCYTES % (AUTO) 26.4 % (20.0-45.0); MEAN CORPUSCULAR HEMOGLOBIN 29.5 PG (27.0-31.0); MEAN CORPUSCULAR HGB CONC 33.8 G/DL (32.0-36.0); MEAN CORPUSCULAR VOLUME 87 FL (80-99); MEAN PLATELET VOLUME 6.6 FL (6.5-10.1); MONOCYTES % (AUTO) 9.6 % (1.0-10.0); NEUTROPHILS % (AUTO) 60.9 % (45.0-75.0); PLATELET COUNT 152 K/UL (150-450); RED BLOOD COUNT 4.01 M/UL (4.70-6.10); RED CELL DISTRIBUTION WIDTH 12.1 % (11.6-14.8); WHITE BLOOD COUNT 5.7 K/UL (4.8-10.8)
[2016-06-27 09:38] LABS: CALCIUM 8.7 mg/dL (8.6-10.2); CREATININE 1.5 mg/dL (0.7-1.2); GLOMERULAR FILTRATION RATE 46.7 mL/min (>60); POTASSIUM 4.5 mEQ/L (3.4-4.9)
[2016-06-27 11:55] VITALS: BP 128/65
--- NOTE | 2016-06-27 14:48 | Cardiology Progress Note ---
Assessment/Plan Assessment/Plan syncope likely vasodepressor hypotension related to volume and meds periorbital ecchymosis due to trauma lbbb ? new vit b12 insuf orthossttic vital wrer postive today but standing bp was till more than 100 recommned drink plenty of fluids stay away from antihypertensive for now need ischemia evaluation as out pt tele neg for tachy adn suhail drink pleny of fluid ivf bolus now priro to dc Subjective Cardiovascular: Reports: lightheadedness - when stoood up for orthosttic vitasl but not at other times , Denies: chest pain, palpitations Respiratory: Denies: shortness of breath Gastrointestinal/Abdominal: Denies: abdominal pain Genitourinary: Denies: burning Objective Last 24 Hour Vital Signs Date Time Temp Pulse Resp B/P Pulse Ox O2 Delivery O2 Flow Rate FiO2 06/27/16 12:00 97 06/27/16 12:00 63 06/27/16 11:55 97.7 60 18 128/65 97 Room Air 06/27/16 11:55 60 06/27/16 08:15 93 06/27/16 08:05 73 06/27/16 08:00 72 06/27/16 08:00 97.2 72 18 135/66 96 Room Air 06/27/16 08:00 70 06/27/16 07:27 67 65 60 06/27/16 04:07 98.4 77 21 121/60 96 Room Air 06/27/16 03:52 62 06/27/16 00:22 68 65 74 06/27/16 00:21 97.9 68 20 126/72 94 Room Air 06/26/16 23:38 93 06/26/16 20:00 97.9 66 20 117/64 95 Room Air 06/26/16 19:48 69 06/26/16 17:00 70 74 64 06/26/16 16:00 98.1 69 16 129/70 97 Room Air 06/26/16 16:00 66 General Appearance: alert, other - periorbital and aplpebral ecchymosis Neck: supple Cardiovascular: normal rate, regular rhythm Respiratory/Chest: lungs clear, normal breath sounds Abdomen: normal bowel sounds, non tender, soft Extremities: no swelling Intake and Output 06/26/16 06/27/16 19:00 07:00 Intake Total 680 ml Balance 680 ml Intake Oral 680 ml # Voids 2 4 Laboratory Tests Test 06/26/16 21:45 06/27/16 08:50 Troponin I < 0.30 ng/mL (<=0.30) White Blood Count 5.7 K/UL (4.8-10.8) Red Blood Count 4.01 M/UL (4.70-6.10) L Hemoglobin 11.8 G/DL (14.2-18.0) L Hematocrit 35.0 % (42.0-52.0) L Mean Corpuscular Volume 87 FL (80-99) Mean Corpuscular Hemoglobin 29.5 PG (27.0-31.0) Mean Corpuscular Hemoglobin Concent 33.8 G/DL (32.0-36.0) Red Cell Distribution Width 12.1 % (11.6-14.8) Platelet Count 152 K/UL (150-450) Mean Platelet Volume 6.6 FL (6.5-10.1) Neutrophils (%) (Auto) 60.9 % (45.0-75.0) Lymphocytes (%) (Auto) 26.4 % (20.0-45.0) Monocytes (%) (Auto) 9.6 % (1.0-10.0) Eosinophils (%) (Auto) 2.4 % (0.0-3.0) Basophils (%) (Auto) 0.8 % (0.0-2.0) Sodium Level 138 mEQ/L (135-145) Potassium Level 4.5 mEQ/L (3.4-4.9) Chloride Level 101 mEQ/L (98-107) Carbon Dioxide Level 25 mEQ/L (20-30) Anion Gap 12 (5-15) Blood Urea Nitrogen 20 mg/dL (7-23) Creatinine 1.5 mg/dL (0.7-1.2) H Estimat Glomerular Filtration Rate 46.7 mL/min (>60) Glucose Level 134 mg/dL (74-106) H Calcium Level 8.7 mg/dL (8.6-10.2) Microbiology Date/Time Source Procedure Growth Status 06/25/16 16:00 Blood Blood Culture - Preliminary NO GROWTH AFTER 24 HOURS Resulted 06/25/16 15:45 Blood Blood Culture - Preliminary NO GROWTH AFTER 24 HOURS Resulted HOLA KIM Jun 27, 2016 14:48
[2016-06-27] MEDS ORDERED: NS 250 ML IVPB ONE (15:00)
[2016-06-27 16:00] VITALS: BP 121/78
--- NOTE | 2016-06-27 16:36 | Geriatric Progress Note ---
Assessment/Plan Problems: (1) Renal insufficiency (2) Volume depletion (3) Hyperuricemia without signs inflammatory arthritis/tophaceous disease (4) Diet-controlled diabetes mellitus (5) Dyslipidemia (6) History of hypertension (7) Adverse drug effect (8) B12 deficiency (9) Gait instability (10) Neuropathy (11) Syncope (12) Lactic acid acidosis (13) Left bundle branch block (LBBB) (14) Orthostatic hypotension (15) Contusion Assessment/Plan Patient now appears stable to be d/c home. Reviewed situation in detail with patient, including possible factors of volume depletion, medication effect, and autonomic dysfunction contributing to syncopal event. Problem of orthostatic hypotension, with and without compensatory increase in heart rate reviewed. Precautions discussed. Patient advised to check orthostatic VS at least bid at home, also to check accucheks at home. Possible further w/u re LBBB, hyperuricemia in future. Should increase structured exercise. Dictated #[id number] Discussed with: patient, hospital staff Subjective Interval Events Patient generally feels well. Early this am had one episode of lightheadness on standing for orthostatic bp check. Staff documented sbp down to 63, with no heart rate response. However, on immediate repeat, findings and sxs were not duplicated. Since that time patient has generally felt well. Further orthostatics have shown only borderline systolic drop with appropriate tachycardic response. Dr. Perla has ordered a bolus of 250cc to further replete his volume. Repeat laboratories do not reveal any significant changes. Random cortisol was normal. Serial glucoses remain controlled off Metformin. Serial bps show not hypertension. Carotid studies with only 10% JUAN A stenosis. Staff reports no new issues. Discussed with Dr. Perla who feels that volume is the main etiologic factor. Constitutional: Denies: chills, fever, pain Eye: Denies: eye pain Respiratory: Denies: shortness of breath Cardiovascular: Denies: chest pain, edema, palpitations Gastrointestinal/Abdominal: Denies: abdominal pain, nausea Genitourinary: Denies: dysuria Musculoskeletal: Denies: back pain Endocrine: Denies: excessive sweating, flushing, increased thirst Geriatric Geriatric Last 24 Hour Vital Signs Date Time Temp Pulse Resp B/P Pulse Ox O2 Delivery O2 Flow Rate FiO2 06/27/16 12:00 63 06/27/16 12:00 97 06/27/16 12:00 63 06/27/16 11:55 97.7 60 18 128/65 97 Room Air 06/27/16 11:55 60 06/27/16 08:15 93 06/27/16 08:05 73 06/27/16 08:00 72 06/27/16 08:00 97.2 72 18 135/66 96 Room Air 06/27/16 08:00 70 06/27/16 07:27 67 65 60 06/27/16 04:07 98.4 77 21 121/60 96 Room Air 06/27/16 03:52 62 06/27/16 00:22 68 65 74 06/27/16 00:21 97.9 68 20 126/72 94 Room Air 06/26/16 23:38 93 06/26/16 20:00 97.9 66 20 117/64 95 Room Air 06/26/16 19:48 69 06/26/16 17:00 70 74 64 Intake and Output 06/26/16 06/27/16 19:00 07:00 Intake Total 680 ml Balance 680 ml Intake Oral 680 ml # Voids 2 4 Laboratory Tests Test 06/26/16 21:45 06/27/16 08:50 Troponin I < 0.30 ng/mL (<=0.30) White Blood Count 5.7 K/UL (4.8-10.8) Red Blood Count 4.01 M/UL (4.70-6.10) L Hemoglobin 11.8 G/DL (14.2-18.0) L Hematocrit 35.0 % (42.0-52.0) L Mean Corpuscular Volume 87 FL (80-99) Mean Corpuscular Hemoglobin 29.5 PG (27.0-31.0) Mean Corpuscular Hemoglobin Concent 33.8 G/DL (32.0-36.0) Red Cell Distribution Width 12.1 % (11.6-14.8) Platelet Count 152 K/UL (150-450) Mean Platelet Volume 6.6 FL (6.5-10.1) Neutrophils (%) (Auto) 60.9 % (45.0-75.0) Lymphocytes (%) (Auto) 26.4 % (20.0-45.0) Monocytes (%) (Auto) 9.6 % (1.0-10.0) Eosinophils (%) (Auto) 2.4 % (0.0-3.0) Basophils (%) (Auto) 0.8 % (0.0-2.0) Sodium Level 138 mEQ/L (135-145) Potassium Level 4.5 mEQ/L (3.4-4.9) Chloride Level 101 mEQ/L (98-107) Carbon Dioxide Level 25 mEQ/L (20-30) Anion Gap 12 (5-15) Blood Urea Nitrogen 20 mg/dL (7-23) Creatinine 1.5 mg/dL (0.7-1.2) H Estimat Glomerular Filtration Rate 46.7 mL/min (>60) Glucose Level 134 mg/dL (74-106) H Calcium Level 8.7 mg/dL (8.6-10.2) Current Medications Medications (Trade) Dose Ordered Sig/Gorge Route PRN Reason Start Time Stop Time Status Last Admin Dose Admin Cyanocobalamin (Vitamin B12) 1,000 mcg DAILY SUBQ 06/26/16 13:30 06/29/16 13:29 06/27/16 09:24 Patient Own Medication (Patient's Own Med) 1 ea DAILY OPHTHALM 06/26/16 11:00 07/17/16 10:59 06/27/16 08:47 Patient Own Medication (Patient's Own Med) 1 ea TID OPHTHALM 06/26/16 11:00 07/26/16 10:59 06/27/16 12:57 Height (Feet): 6 Height (Inches): 1.00 Weight (Pounds): 186 General Appearance: no apparent distress, alert, non-toxic Head: normocephalic, other - perirobital ecchymoses Eyes: left other - lateral lower sclera with superficial hemorrage, but not involvement of the iris. Subjectively patient reports no blurring or other change in OS vision, bilateral anicteric ENT: normal pharynx Neck: full range of motion, no mass Respiratory: lungs clear Cardiovascular: regular rate, rhythm Gastrointestinal: normal bowel sounds, non tender, soft, no mass, no organomegaly, non-distended Edema: no edema noted Generalized Neurologic: no new focality CHIQUIS STAUFFER Jun 27, 2016 16:36
[2016-06-27] MEDS ORDERED: CYANOCOBAL1000 MCG/M SUBQ (16:55)
[2016-06-27] MEDS ORDERED: Patient's Own Med OPHTHALM ×2 (16:55)
--- NOTE | 2016-06-27 17:37 | Cardiology Report ---
APPROVED REPORT EKG Measurement Heart [id number] TN 180P62 [id number] Sinus bradycardia Left bundle branch block Abnormal ECG
--- NOTE | 2016-06-27 17:47 | Cardiology Report ---
APPROVED REPORT EKG Measurement Heart [id number] DC 200P78 [id number] Normal sinus rhythm Left bundle branch block Abnormal ECG
--- NOTE | 2016-06-27 18:36 | Neurology Progress Note ---
Interim History Interim History Interim History Mr. Chand feels better. He is sitting up in a chair. The mind is clear. He has had no further episodes of loss of consciousness. This morning when his postural blood pressure was being checked he did get lightheaded. Review of Systems Neuro Review of Systems Benign. Objective Physical Exam Last Vital Signs Date Time Temp Pulse Resp B/P Pulse Ox O2 Delivery O2 Flow Rate FiO2 06/27/16 16:00 98.1 71 20 121/78 97 Room Air Laboratory Tests Test 06/26/16 21:45 06/27/16 08:50 Troponin I < 0.30 ng/mL (<=0.30) White Blood Count 5.7 K/UL (4.8-10.8) Red Blood Count 4.01 M/UL (4.70-6.10) L Hemoglobin 11.8 G/DL (14.2-18.0) L Hematocrit 35.0 % (42.0-52.0) L Mean Corpuscular Volume 87 FL (80-99) Mean Corpuscular Hemoglobin 29.5 PG (27.0-31.0) Mean Corpuscular Hemoglobin Concent 33.8 G/DL (32.0-36.0) Red Cell Distribution Width 12.1 % (11.6-14.8) Platelet Count 152 K/UL (150-450) Mean Platelet Volume 6.6 FL (6.5-10.1) Neutrophils (%) (Auto) 60.9 % (45.0-75.0) Lymphocytes (%) (Auto) 26.4 % (20.0-45.0) Monocytes (%) (Auto) 9.6 % (1.0-10.0) Eosinophils (%) (Auto) 2.4 % (0.0-3.0) Basophils (%) (Auto) 0.8 % (0.0-2.0) Sodium Level 138 mEQ/L (135-145) Potassium Level 4.5 mEQ/L (3.4-4.9) Chloride Level 101 mEQ/L (98-107) Carbon Dioxide Level 25 mEQ/L (20-30) Anion Gap 12 (5-15) Blood Urea Nitrogen 20 mg/dL (7-23) Creatinine 1.5 mg/dL (0.7-1.2) H Estimat Glomerular Filtration Rate 46.7 mL/min (>60) Glucose Level 134 mg/dL (74-106) H Calcium Level 8.7 mg/dL (8.6-10.2) Neurologic Exam Objective PHYSICAL EXAMINATION: GENERAL: He is a well-developed and well-nourished, pleasant gentleman, sitting up in a chair, in no acute distress. HEAD: Normocephalic with bilateral raccoon's eyes with the left eye swollen more than the right eye and in addition forehead and facial abrasions. EENT: Examination benign. NECK: No neck rigidity was observed. NEUROLOGICAL EXAMINATION: MENTAL STATUS EXAMINATION: He was alert and awake. He was oriented to person, place, and time. He was able to recall 3/3 words immediately after 1 minute and 3 minutes. He was able to remember presidents Obama through Bennie. His mathematical skills were good. His visuospatial function was preserved. SPEECH: He had no dysarthria. LANGUAGE: He had no aphasia. CRANIAL NERVE EXAMINATION: II: The visual rivers were intact to confrontation testing. III, IV & : The external ocular movements were full and the pupils 3 mm in diameter, equal, round, regular and reactive sluggishly to light. He did have significant ptosis bilaterally with palpebral fissure being smaller on the left side compared to the right side. V: He had normal facial sensations and the temporales, masseters, and pterygoids function normally. VII: He had normal facial expressions and no facial asymmetry. VIII: He was able to hear well bilaterally and had no nystagmus. IX: The palate moved symmetrically on phonation. X: He had no hoarseness of voice. XI: The sternocleidomastoids and trapezii functioned normally. XII: The tongue was in the midline without any fasciculations or atrophy. MOTOR SYSTEM: The tone was normal in all four extremities. Examination of muscle mass revealed no focal wasting. Examination of power revealed grade 5/5 power in all muscle groups tested. SENSORY EXAMINATION: He had intact sensations to pinprick, light touch, and graphesthesia. COORDINATION: He performed well on [id number] and [id number] testing. On Romberg test, he swayed, but did not fall to one side or the other. REFLEXES: Trace+ and bilaterally symmetrical at the biceps, triceps, brachioradialis, and knees. 0 at both ankles. The plantar responses were flexor bilaterally. STANCE: He had a minimally wide-based, but stable stance. GAIT: He walked with a minimally wide-based, but stable gait. Impression/Recommendations Diagnostic Impression 1. Mr. Shyam Chand is a 66-year-old, right-handed, gentleman, who does have a past history of hypertension and dyslipidemia, hyperglycemia numerous years ago, and an episode of pneumonia approximately four years ago. On 06/25/16 was at a meeting and standing for approximately two hours following, which he felt lightheaded. He had some fluids and ate and felt better. 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 He then rapidly regained consciousness rapidly. 2. He feels wel today and plans are to go home. 3. On neurological examination, at this time, he has bilateral raccoon's eyes and in addition forehead and facial abrasions. His deep tendon reflexes are globally diminished, but the rest of his neurological examination is essentially benign. 4. A CT scan of the brain without contrast revealed no intracranial pathology. 5. Laboratory data revealed that he is mildly anemic with a hemoglobin of 11.8. His chemistry panel on admission revealed a BUN of 28 and creatinine of 1.9. The Lactic acid was elevated to 2.30. Since then he has had further laboratory tests, which have revealed a normal hemoglobin A1c of 5.1, but a low B12 level of 273. The TSH is normal. 6. The patient's history and neurological examination are most compatible with a syncopal episode. The episode of syncope was most probably related to dehydration, and possibly autonomic dysfunction. Recommendations 1. Continue present management.. 2. Vitamin B12 -1000 mcg SC q month. 3. Keep well hydrated on hot and dry days. 4. Follow up in office in 6-8 weeks. Eddie Hobbs M.D., M.S.P.H. EDDIE HOBBS Jun 27, 2016 18:35
--- NOTE | 2016-06-27 23:45 | Diagnostic Imaging Report ---
APPROVED REPORT CPT Code: 04975 Vascular Symptoms Syncope Doppler Spectral Velocity Analysis RightLeft RIGHT SIDE: CCA/ECA - Imaging reveals no significant plaque in the common carotid and external carotid arteries. ICA - Imaging reveals irregular plaque in the internal carotid artery. The Doppler signal indicates the degree of stenosis is minimal (10%) in the internal carotid artery. VERTEBRAL - The vertebral artery is within normal limits. LEFT SIDE: CCA - Imaging reveals no significant plaque within the extracranial carotid arteries. The Doppler spectral flow analysis is within normal limits throughout the extracranial carotid arteries. VERTEBRAL - The vertebral artery is within normal limits.
--- NOTE | 2016-06-28 03:38 | Discharge Summary ---
DATE OF ADMISSION: 06/25/2016 DATE OF DISCHARGE: 06/27/2016 DISCHARGE DIAGNOSES: 1. Syncopal event, possibly multifactorial in etiology. 2. Probable adverse medication effect associated with the use of Benicar for hypertension with resulting hypotensive event. 3. Probable volume depletion with resulting orthostatic hypotension. 4. Possible element of dysautonomia contributing to orthostatic hypotension. 5. B12 deficiency. 6. Diabetes mellitus previously treated with metformin, now potentially requiring no medication therapy. 7. Hypertension, previously treated with Benicar, discharged without medication therapy. 8. Mild gait instability with history of neuropathy. 9. Recent left cataract extraction, intraocular lens implant with no evidence of traumatic complication due to syncopal event except for minimal scleral hemorrhage not involving an iris or pupil. 10. Renal insufficiency, chronic kidney disease versus acute kidney injury, at least in part, secondary to prerenal status. 11. Hyperuricemia with history of prior renal stones. 12. Incidental left bundle branch block. Consider evaluation for ischemia in the future. 13. Normal left ventricular function on cardiac echo with mild diastolic dysfunction. 14. Minimal carotid disease. HISTORY OF PRESENT ILLNESS: The patient is a 66-year-old gentleman, who experienced a syncopal event with loss of consciousness and trauma to the forehead necessitating admission to the hospital. Details of the history and physical examination are per the dictation of 06/26/2016. HOSPITAL COURSE: The patient was placed on telemetry and monitored for occult arrhythmia. Although he had a left bundle branch block which had been documented just prior to admission on the preoperative physical, there was no evidence of significant dysrhythmia otherwise. Dr. Levon Perla, who saw the patient in Cardiology consultation recommended consideration of an ischemia evaluation sometime in the future to rule out an ischemic etiology for the left bundle branch block unless it was historically present for extended period of time. The patient was seen in neurologic consultation by Dr. Chivo Hobbs. CT scan of the head revealed no focal lesions and carotid studies revealed only 10% stenosis in the right internal carotid and clean left-sided vessels. There was no evidence of a specific central nervous system etiology for the patient's syncopal event. The patient was documented to have an element of orthostasis. On most occasions, the orthostasis represented a drop of somewhat over 20 points systolic with a compensatory increase in heart rate of approximately 20 points suggesting a volume depletion as a primary etiology. The patient was hydrated and his symptoms improved in terms of mild orthostatic dizziness with hydration. On one occasion at least, the patient did have evidence of a significant orthostatic hypotension with no compensatory tachycardia. The patient did report some mild symptoms during this event. Whether this documentation was an error or represented an actual dysautonomic presentation is unclear. The patient has a history of very mild diabetes mellitus and was also noted to have a B12 level of 273 on admission suggesting the possibility of several factors contributing to dysautonomia and therefore, this needs to be observed for in the future since it may also be contributing etiology. In addition to these factors, the patient had been taking eye drops for his cataract surgery and had recently been started on 20 mg of Benicar and these medications as well as the patient's metformin with some component of hypoglycemia could also have been contributing to the presentation. In addition on initial presentation, the patient had a mildly elevated lactate with significant renal insufficiency. There was no evidence of sepsis or hypoperfusion that would account for the lactic acidosis and therefore, it is felt that this was most likely due to the patient's metformin and therefore, ultimately it was decided the patient should be discharged off of both his metformin and his Benicar. The patient was observed in the hospital off these medications for at least 48 hours and did not develop either hyperglycemia or hypertension of any degree and he has been instructed to monitor his blood pressure and Accu-Cheks at home and also follow up with his primary care physician, Dr. Osmar Washington. The patient was begun on B12 supplementation and should follow up with Dr. Washington in this regard as well. Mr. Chand experienced a small amount of scleral hemorrhage in the left eye, but no evidence of compromise of the intraocular lens implant, and has been instructed to follow up with Dr. 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 Finally, the patient has some element of baseline renal dysfunction and a history of hyperuricemia and treatment of the hyperuricemia might be considered to prevent progressive interstitial renal disease in the future if the hyperuricemia is persistent as an outpatient. The patient also would benefit from increased exercise for improve cardiovascular endurance and potentially, a larger margin of error with respect to orthostatic events and will clearly need to be careful about his level of hydration in the future. The patient understood all these concerns and agreed to monitoring himself at home and also following up with Dr. Washington's instruction. At the time of discharge, the patient's medications will include vitamin B12 to be administered intramuscularly once a month as well as his postoperative ophthalmic drops involving Durezol and Ilevro as instructed by Dr. Baker. His metformin and Benicar as noted have been discontinued. Osmar Sanchez M.D. DR: NIKITA JOB#: [id number] CC: DAVY
--- NOTE | 2016-07-04 14:55 | Cardiology Report ---
APPROVED REPORT EXAM: Two-dimensional and M-mode echocardiogram with Doppler and color Doppler. INDICATION Dizziness and Vertigo M-Mode DIMENSIONS IVSd1.5 (0.7-1.1cm)Left Atrium (MM)4.4 (1.6-4.0cm) LVDd4.6 (3.5-5.6cm)Aortic Root2.7 (2.0-3.7cm) PWd0.7 (0.7-1.1cm)Aortic Cusp Exc.1.8 (1.5-2.0cm) LVDs3.1 (2.5-4.0cm) PWs0.8 cm Normal left ventricular chamber size, systolic function and wall motion. Left ventricular ejection fraction estimated to be 60-65 %. No evidence of left ventricular hypertrophy. No evidence of pericardial fat or effusion. Mild left atrial enlargement by 2D. Right cardiac chamber sizes are within normal limits. Focal aortic valve sclerosis with adequate cusp excursion Mildly thickened mitral valve leaflets with normal excursion. Mitral annulus and aortic root calcification. Pulmonic valve not well visualized. Normal tricuspid valve structure. IVC not obtainable. A color flow and spectral Doppler study was performed and revealed: No aortic regurgitation. Mild mitral regurgitation. Left ventricular diastolic dysfunction grade 1. Mild tricuspid regurgitation. Tricuspid systolic velocities suggests peak right ventricular systolic pressure of 33 mmHg
== END 2016-06-27 18:34 | disposition home or self-care (01) | DRG 312 ==
LOC: EDBD 15:50 → EMR 16:21 → EDBEDREQ 19:44 → 2E 20:22
DX: I95.2 Hypotension due to drugs (principal); E87.2 Acidosis; I44.7 Left bundle-branch block, unspecified; E53.8 Deficiency of other specified B group vitamins; I10 Essential (primary) hypertension; R26.89 Other abnormalities of gait and mobility; T46.5X5A Adverse effect of other antihypertensive drugs, initial encounter; Y92.89 Other specified places as the place of occurrence of the external cause; E11.9 Type 2 diabetes mellitus without complications; E79.0 Hyperuricemia without signs of inflammatory arthritis and tophaceous disease; E86.0 Dehydration; S00.81XA Abrasion of other part of head, initial encounter; W07.XXXA Fall from chair, initial encounter; Y99.8 Other external cause status; S00.83XA Contusion of other part of head, initial encounter; Z87.442 Personal history of urinary calculi; G62.9 Polyneuropathy, unspecified; N28.9 Disorder of kidney and ureter, unspecified
CPT/HCPCS: 36415; 70450; 71010; 80048; 80053; 81003; 82306; 82533; 82553; 82607; 82746; 82962; 83036; 83605; 83735; 84443; 84484; 85025; 85610; 85730; 86850; 86900; 86901; 87040; 93005; 93306; 93880